=== PATIENT | male | born 1945 | race African-American/Black ===

== ENCOUNTER 2024-07-20 20:08 | Emergency (ER) | payer OTHER ==
[~2024-07-20] VITALS: Ht 182.9 cm; Wt 82.0 kg
[~2024-07-20 20:08] MED LIST: EPINEPHRINE 0.1MG/ML (1:10,000) 10ML SYR ONE
== END 2024-07-20 23:01 ==
LOC: ER 20:08
DX: I46.9 Cardiac arrest, cause unspecified (principal); I10 Essential (primary) hypertension; Z79.899 Other long term (current) drug therapy
CPT/HCPCS: 99291; 92950; 94664; 31720; 98960; J3490; 94070